=== PATIENT | male | born 1965 | race Caucasian/White ===

== ENCOUNTER 2017-05-07 02:33 | Emergency (ER) | payer OTHER ==
[2017-05-07 02:37] VITALS: RESP 18
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
[2017-05-07 04:27] VITALS: BP 103/68; PULSE 106; TEMP 98.1
--- NOTE | 2017-05-07 04:31 | CT ---
EXAM: CT Head Without Intravenous Contrast CLINICAL HISTORY: 51 years old, male; Pain; Headache and other: Trauma TECHNIQUE: Axial computed tomography images of the head/brain without intravenous contrast. All CT scans at this facility use one or more dose reduction techniques, viz.: automated exposure control; ma/kV adjustment per patient size (including targeted exams where dose is matched to indication; i.e. head); or iterative reconstruction technique. Coronal and sagittal reformatted images were created and reviewed. COMPARISON: No relevant prior studies available. FINDINGS: Brain: No intracranial hemorrhage. No mass. No edema. Ventricles: No hydrocephalus. Bones/joints: No acute fracture. Soft tissues: Unremarkable. Sinuses: Scattered minimal to mild mucosal thickening. Small air-fluid levels within maxillary sinuses. Mastoid air cells: No mastoid effusion. Orbits: Unremarkable as visualized. IMPRESSION: 1. No intracranial hemorrhage. 2. Sinus disease.
[2017-05-07 04:36] VITALS: O2SAT 97
== END 2017-05-07 04:28 | disposition home or self-care (01) ==
LOC: C.ER 02:33
DX: S00.03XA Contusion of scalp, initial encounter (principal); Y08.89XA Assault by other specified means, initial encounter; Y92.89 Other specified places as the place of occurrence of the external cause; F10.229 Alcohol dependence with intoxication, unspecified; Y90.9 Presence of alcohol in blood, level not specified